=== PATIENT | male | born 1960 | race Caucasian/White ===

== ENCOUNTER 2017-02-04 08:07 | Inpatient (IN) | payer OTHER ==
[~2017-02-04] VITALS: Ht 167.6 cm; Wt 89.0 kg
[2017-02-04] MEDS ORDERED: PROT40TA PO (08:32)
[2017-02-04] MEDS ORDERED: ATOR1TAB18 PO (08:32)
[2017-02-04] MEDS ORDERED: ALPR0.5T3 PO (08:32)
[2017-02-04] MEDS ORDERED: AMLO2.5T PO (08:32)
[2017-02-04] MEDS ORDERED: ALLO100T PO (08:32)
[2017-02-04] MEDS ORDERED: LISI10TA3 PO (08:32)
[2017-02-11] VITALS (9 sets, daily range): BP systolic 118–154; BP diastolic 76–90; PULSE 87–116; RESP 18–20; TEMP 97.7–99.1; O2SAT 95–99
[2017-02-11] MEDS ORDERED: ePHEDrine/NS 25 MG/5 ML SYR IV ONE (11:04)
[2017-02-11] MEDS ORDERED: PHENYLEPH/NS 1000 MCG/10 ML SYR IV ONE (11:04)
[2017-02-11] MEDS ORDERED: PROPOFOL 200 MG/20 ML AMP IV ONE (11:04)
[2017-02-11] MEDS ORDERED: ONDANSETRON HCL 4 MG/2 ML VIAL IV PUSH ONE (11:05)
[2017-02-11] MEDS ORDERED: LACTATED RINGER'S 1000 ML INJ 3,000 ML IV ONE (11:05)
[2017-02-11] MEDS ORDERED: VECURONIUM BROMIDE 20 MG VIAL IV ONE (11:05)
[2017-02-11] MEDS ORDERED: POVIDONE IODINE 5% (ANTISEPSIS KIT) 4 APPLICATIONS EACH NARE PRN (13:00)
[2017-02-11] MEDS ORDERED: DEXTROSE 5% IN WATE 1000ML INJ 1,000 ML IV SCH (13:00)
[2017-02-11] MEDS ORDERED: CHLORHEXIDINE GLUCONATE 2 % 1 PACK (2 CLOTHS) TOPICAL PRN (13:00)
[2017-02-11] MEDS ORDERED: LACTATED RINGER'S 1000 ML IV PRN (13:00)
[2017-02-11] MEDS ORDERED: INSULIN HUMAN REGULAR 1,000 UNITS/10 ML VIAL SQ PRN (13:00)
[2017-02-11] MEDS ORDERED: SODIUM CHLORID 0.9% 500 ML IV PRN (13:00)
[2017-02-11] MEDS ORDERED: ALVIMOPAN 12 MG CAPSULE - On Call PO SCH (13:00)
[2017-02-11] MEDS ORDERED: METOPROLOL TARTRATE 25 MG TAB PO PRN (13:00)
[2017-02-11] MEDS ORDERED: LEVOFLOXACIN 500 MG PREMIX INJ 100 ML IV ONE ×2 (13:37→13:44)
[2017-02-11] MEDS ORDERED: METRONIDAZOLE 500 MG/100 ML ISONTONIC SOLN IV SCH (14:15)
[2017-02-11] MEDS ORDERED: LEVOFLOXACIN 500 MG PREMIX INJ 100 ML IV SCH (14:15)
[2017-02-11] MEDS ORDERED: FAMOTIDINE 20 MG/2 ML VIAL ONE (14:15)
[2017-02-11] MEDS ORDERED: ACETAMINOPHEN 1000 MG/100 ML VIAL IV ONE (14:15)
[2017-02-11] MEDS ORDERED: MIDAZOLAM HCL 2 MG/2 ML VIAL ONE (14:15)
[2017-02-11] MEDS ORDERED: fentaNYL CITRATE 250 MCG/5 ML AMP ONE ×2 (14:16→17:36)
[2017-02-11] MEDS ORDERED: DEXAMETHASONE SOD PHOS 4 MG/ML VIAL ONE (14:16)
--- NOTE | 2017-02-11 14:22 | PD.HP.UP ---
H&P Update Note The Pre-Admit History and Physical Examination regarding the above named patient was reviewed (including, but not limited to, vital signs, heart, lungs, co-morbid conditions), and upon re-examination it is noted that: the patient's condition has not significantly changed since the last examination. Hosea Hutton MD Feb 11, 2017 14:22
[2017-02-11] MEDS ORDERED: metroNIDAZOLE 500 MG INJ 100 ML IV ONE (14:39)
[2017-02-11] MEDS ORDERED: BUPIVACAINE HCL PF 0.5% 30 ML VIAL ONE (15:02)
[2017-02-11] MEDS ORDERED: SUGAMMADEX SODIUM 200 MG/2 ML VIAL IV PUSH ONE ×2 (16:50)
--- NOTE | 2017-02-11 17:22 | HHI.PR ---
Immediate Post Op Note Procedure Date: Feb 11, 2017 Pre Op Diagnosis: Diverticulitis Post Op Diagnosis: same Surgeon: Hosea Hutton Office Coordinator Receptionist(s): Adriana Procedure: Exploratory lap + Lar Findings: chronic diverticulitis rectosigmoid liver/GB normal pre-sacral vein bleeding Complications: pre-sacral vein bleeding Specimen(s) removed: rectosigmoid Estimated blood loss: 1500cc Anesthesia: General Drains: DANNY IVF Patient to: PACU Patient Condition: Good Hosea Hutton MD Feb 11, 2017 17:22
[2017-02-11] MEDS ORDERED: ENALAPRILAT 1.25 MG/ML VIAL IV PRN (17:30)
[2017-02-11] MEDS ORDERED: SODIUM CHLOR 0.9% 250 ML INJ 250 ML IV ONE (17:30)
[2017-02-11] MEDS ORDERED: POTASSIUM CHLOR 20 MEQ PREMIX 100 ML IV PRN (17:30)
[2017-02-11] MEDS ORDERED: ACETAMINOPHEN 325 MG TAB PO PRN (17:30)
[2017-02-11] MEDS ORDERED: BUPIVACAINE HCL PF 0.5% 30 ML VIAL NB SCH (17:30)
[2017-02-11] MEDS ORDERED: NALOXONE HCL 0.4 MG/ML AMP IV PRN (17:30)
[2017-02-11] MEDS ORDERED: ONDANSETRON HCL 4 MG/2 ML VIAL IV PRN (17:30)
[2017-02-11] MEDS ORDERED: Post-op Orders (for Pharmacy) MISC XX ONE (17:30)
[2017-02-11] MEDS ORDERED: ACETAMINOPHEN/HYDROcodone 325 MG/5 MG TAB PO PRN (17:30)
[2017-02-11] MEDS ORDERED: ENALAPRILAT 2.5 MG/2 ML VIAL IV PRN (17:30)
[2017-02-11] MEDS ORDERED: POTASSIUM CHLOR 40 MEQ PREMIX 100 ML IV PRN (17:30)
[2017-02-11] MEDS ORDERED: BENZOCAINE 6 MG/MENTHOL 10 MG LOZENGE BUCCAL PRN (17:30)
[2017-02-11] MEDS ORDERED: ALPRAZolam 0.5 MG TAB PO PRN (17:30)
[2017-02-11] MEDS ORDERED: SODIUM CHLORIDE 0.9% FLUSH 5 ML FLUSH IVF PRN (17:30)
[2017-02-11] MEDS ORDERED: DO NOT ADM ANY ANTICOAGULANT DRUGS PRN (17:31)
[2017-02-11] MEDS ORDERED: *MEPERIDINE 25 MG INJ VIAL PERIprocedural Use ONLY ONE (17:33)
[2017-02-11] MEDS: KETOROLAC TROMETHAMINE 30 MG/ML (IVP) VIAL IVP PRN ×2 (17:48→23:56)
[2017-02-11 17:53] LABS: AUTOMATED NEUTROPHIL # 18.3 TH/MM3 (1.8-7.7); BASOPHIL # 0.1 TH/MM3 (0-0.2); BASOPHIL % 0.4 % (0.0-2.0); EOSINOPHIL % 0.2 % (0.0-4.0); HEMATOCRIT 33.9 % (39.0-51.0); HEMO FLAGS DIFF FINAL; LYMPH % 8.7 % (9.0-44.0); LYMPHOCYTE # 1.8 TH/MM3 (1.0-4.8); MEAN CORPUSCULAR HEMOGLOBIN 31.3 PG (27.0-34.0); MEAN CORPUSCULAR HGB CONC 34.4 % (32.0-36.0); MONO % 3.4 % (0.0-8.0); NEUT % 87.3 % (16.0-70.0); PLATELET COUNT 183 TH/MM3 (150-450); RED BLOOD COUNT 3.73 MIL/MM3 (4.50-5.90); RED CELL DISTRIBUTION WIDTH 13.9 % (11.6-17.2)
[2017-02-11] MEDS: D5-NS + KCL 20 MEQ INJ 1,000 ML IV SCH ×2 (18:00→23:43)
[2017-02-11] MEDS ORDERED: *ONDANSETRON 4 MG VIAL PERIprocedural Use ONLY ONE (18:06)
[2017-02-11] MEDS ORDERED: *morphine SULFATE 8 MG/ML PERIprocedure ONLY ONE (18:07)
[2017-02-11] MEDS ORDERED: PILL SPLITTER OTHER PRN (18:45)
[2017-02-11] MEDS: MORPHINE SULFATE 30 MG/30 ML PCA IV SCH (18:50)
[2017-02-11] MEDS: METOCLOPRAMIDE HCL 10 MG/2 ML VIAL IVS SCH (19:58)
[2017-02-11] MEDS ORDERED: LORazepam 2 MG/ML VIAL IV ONE (20:00)
[2017-02-11] MEDS: SODIUM CHLORIDE 0.9% FLUSH 5 ML FLUSH IVF SCH (20:03)
[2017-02-11] MEDS ORDERED: metroNIDAZOLE 500 MG INJ 100 ML IV SCH (22:00)
[2017-02-11] MEDS: metroNIDAZOLE 500 MG INJ 100 ML IV SCH (22:00)
[2017-02-11] MEDS: PCA - TOTAL MG MORPHINE DELIVERED PER SHIFT SCH (22:00)
[2017-02-12] VITALS (16 sets, daily range): BP systolic 111–154; BP diastolic 81–96; PULSE 98–114; RESP 18; TEMP 97.6–99.6; O2SAT 96–99
[2017-02-12] MEDS: D5-NS + KCL 20 MEQ INJ 1,000 ML IV SCH ×3 (05:26→20:53)
[2017-02-12] MEDS: metroNIDAZOLE 500 MG INJ 100 ML IV SCH ×2 (06:00→13:22)
[2017-02-12] MEDS: PCA - TOTAL MG MORPHINE DELIVERED PER SHIFT SCH ×3 (06:00→20:53)
[2017-02-12 07:00] LABS: BASOPHIL % 0.1 % (0.0-2.0); HEMATOCRIT 35.9 % (39.0-51.0); HEMO FLAGS DIFF FINAL; LYMPH % 5.9 % (9.0-44.0); LYMPHOCYTE # 0.8 TH/MM3 (1.0-4.8); MEAN CORPUSCULAR HEMOGLOBIN 30.6 PG (27.0-34.0); MEAN CORPUSCULAR HGB CONC 33.7 % (32.0-36.0); MONO % 8.3 % (0.0-8.0); NEUT % 85.7 % (16.0-70.0); PLATELET COUNT 150 TH/MM3 (150-450); RED BLOOD COUNT 3.94 MIL/MM3 (4.50-5.90); RED CELL DISTRIBUTION WIDTH 13.7 % (11.6-17.2); WHITE BLOOD COUNT 12.8 TH/MM3 (4.0-11.0)
[2017-02-12 07:01] LABS: POTASSIUM 4.5 MEQ/L (3.5-5.1)
[2017-02-12] MEDS: MORPHINE SULFATE 30 MG/30 ML PCA IV SCH (07:42)
[2017-02-12] MEDS: PANTOPRAZOLE SODIUM 40 MG VIAL IVP SCH (08:38)
[2017-02-12] MEDS: amLODIPine BESYLATE 5 MG TAB PO SCH (08:38)
[2017-02-12] MEDS: LISINOPRIL 10 MG TAB PO SCH (08:38)
[2017-02-12] MEDS: PANTOPRAZOLE SOD 40 MG DELAYED RELEASE TAB PO SCH (08:38)
[2017-02-12] MEDS: ALLOPURINOL 100 MG TAB PO SCH (08:38)
[2017-02-12] MEDS: METOCLOPRAMIDE HCL 10 MG/2 ML VIAL IVS SCH ×2 (08:39→20:45)
[2017-02-12] MEDS: ALVIMOPAN 12 MG CAPSULE - Post-op dosing PO SCH ×2 (08:39→20:47)
[2017-02-12] MEDS: ATORVASTATIN 80 MG TAB PO SCH (08:39)
[2017-02-12] MEDS: SODIUM CHLORIDE 0.9% FLUSH 5 ML FLUSH IVF SCH ×2 (08:39→20:52)
[2017-02-12] MEDS: KETOROLAC TROMETHAMINE 30 MG/ML (IVP) VIAL IVP PRN ×2 (12:14→20:46)
[2017-02-12] MEDS: LEVOFLOXACIN 500 MG PREMIX INJ 100 ML IV SCH (13:21)
[2017-02-12] MEDS ORDERED: ALVIMOPAN 12 MG CAPSULE PO SCH (21:00)
[2017-02-13] VITALS (14 sets, daily range): BP systolic 105–140; BP diastolic 81–88; PULSE 91–114; RESP 16–20; TEMP 97.1–98.9; O2SAT 92–96
[2017-02-13] MEDS: KETOROLAC TROMETHAMINE 30 MG/ML (IVP) VIAL IVP PRN ×3 (02:34→22:40)
[2017-02-13] MEDS: MORPHINE SULFATE 30 MG/30 ML PCA IV SCH ×2 (03:41→22:59)
[2017-02-13] MEDS: PCA - TOTAL MG MORPHINE DELIVERED PER SHIFT SCH ×3 (06:00→22:00)
[2017-02-13] MEDS: D5-NS + KCL 20 MEQ INJ 1,000 ML IV SCH ×2 (06:25→14:56)
[2017-02-13 06:43] LABS: AUTOMATED NEUTROPHIL # 9.5 TH/MM3 (1.8-7.7); BASOPHIL % 0.4 % (0.0-2.0); EOSINOPHIL # 0.2 TH/MM3 (0-0.4); EOSINOPHIL % 1.2 % (0.0-4.0); HEMATOCRIT 31.7 % (39.0-51.0); HEMO FLAGS DIFF FINAL; LYMPH % 12.6 % (9.0-44.0); LYMPHOCYTE # 1.5 TH/MM3 (1.0-4.8); MEAN CELL VOLUME 90.7 FL (80.0-100.0); MEAN CORPUSCULAR HEMOGLOBIN 30.9 PG (27.0-34.0); MEAN CORPUSCULAR HGB CONC 34.1 % (32.0-36.0); MONO % 8.4 % (0.0-8.0); NEUT % 77.4 % (16.0-70.0); PLATELET COUNT 144 TH/MM3 (150-450); RED CELL DISTRIBUTION WIDTH 14.2 % (11.6-17.2); WHITE BLOOD COUNT 12.2 TH/MM3 (4.0-11.0)
[2017-02-13 07:11] LABS: BICARBONATE 28.9 MEQ/L (21.0-32.0); POTASSIUM 4.4 MEQ/L (3.5-5.1)
[2017-02-13] MEDS: SODIUM CHLORIDE 0.9% FLUSH 5 ML FLUSH IVF SCH ×2 (09:00→20:17)
--- NOTE | 2017-02-13 09:01 | HHI.PR ---
Subjective Remarks Some nausea resolved. No vomiting. No flatus or BMs Objective Vital Signs Date Time Temp Pulse Resp B/P Pulse Ox O2 Delivery O2 Flow Rate FiO2 02/13/17 06:00 96 02/13/17 06:00 16 02/13/17 05:00 98 02/13/17 04:00 97.1 91 16 119/82 96 02/13/17 04:00 98 02/13/17 03:41 16 02/13/17 03:00 96 02/13/17 02:00 92 02/13/17 01:00 92 02/13/17 00:00 97.8 94 18 105/81 96 02/13/17 00:00 95 02/12/17 23:00 98 02/12/17 22:00 100 02/12/17 21:04 96 Nasal Cannula 2.00 02/12/17 21:00 100 02/12/17 20:53 18 02/12/17 20:00 104 02/12/17 20:00 99.6 102 18 124/81 97 02/12/17 15:00 97.8 99 18 123/83 98 02/12/17 15:00 100 02/12/17 11:36 99 Nasal Cannula 2.00 02/12/17 11:12 97.6 101 18 111/85 97 I/O 02/12/17 02/12/17 02/12/17 02/13/17 02/13/17 02/13/17 06:59 14:59 22:59 06:59 14:59 22:59 Intake Total 2167 ml Output Total 1365 ml 875 ml 1550 ml Balance -1365 ml -875 ml 617 ml Intake Oral 480 ml IV Total 1687 ml Output Urine Total 1200 ml 750 ml 1350 ml Drainage Total 165 ml 125 ml 200 ml Result Diagram: 02/13/17 0535 02/13/17 0535 Objective Remarks VS-S Abd: soft,dressing removed,wound clean. ON-Q remains. Labs-OK U/O-OK Assessment and Plan Assessment and Plan Stable POD#2 Transfer to [facility] D/C sue May shower Full liquid diet Ambulate more. Jose Rafael Wright MD Feb 13, 2017 09:01
[2017-02-13] MEDS: ATORVASTATIN 80 MG TAB PO SCH (09:44)
[2017-02-13] MEDS: ALVIMOPAN 12 MG CAPSULE - Post-op dosing PO SCH ×2 (09:44→20:16)
[2017-02-13] MEDS: METOCLOPRAMIDE HCL 10 MG/2 ML VIAL IVS SCH ×2 (09:44→20:16)
[2017-02-13] MEDS: PANTOPRAZOLE SODIUM 40 MG VIAL IVP SCH (09:44)
[2017-02-13] MEDS: ALLOPURINOL 100 MG TAB PO SCH (09:46)
[2017-02-13] MEDS: LISINOPRIL 10 MG TAB PO SCH (09:46)
[2017-02-13] MEDS: amLODIPine BESYLATE 5 MG TAB PO SCH (09:46)
[2017-02-13] MEDS: PANTOPRAZOLE SOD 40 MG DELAYED RELEASE TAB PO SCH (09:46)
[2017-02-13] MEDS: LEVOFLOXACIN 500 MG PREMIX INJ 100 ML IV SCH (14:51)
[2017-02-14] VITALS (7 sets, daily range): BP systolic 119–134; BP diastolic 72–81; PULSE 90–112; RESP 17–20; TEMP 95.7–98.2; O2SAT 94–97
[2017-02-14] MEDS: D5-NS + KCL 20 MEQ INJ 1,000 ML IV SCH (03:56)
[2017-02-14] MEDS: PCA - TOTAL MG MORPHINE DELIVERED PER SHIFT SCH ×2 (04:05→14:00)
[2017-02-14] MEDS: SODIUM CHLORIDE 0.9% FLUSH 5 ML FLUSH IVF SCH ×2 (09:00→21:00)
[2017-02-14] MEDS: ALLOPURINOL 100 MG TAB PO SCH (10:23)
[2017-02-14] MEDS: PANTOPRAZOLE SODIUM 40 MG VIAL IVP SCH (10:24)
[2017-02-14] MEDS: METOCLOPRAMIDE HCL 10 MG/2 ML VIAL IVS SCH ×2 (10:25→20:59)
[2017-02-14] MEDS: PANTOPRAZOLE SOD 40 MG DELAYED RELEASE TAB PO SCH (10:26)
[2017-02-14] MEDS: ATORVASTATIN 80 MG TAB PO SCH (10:26)
[2017-02-14] MEDS: amLODIPine BESYLATE 5 MG TAB PO SCH (10:27)
[2017-02-14] MEDS: ALVIMOPAN 12 MG CAPSULE - Post-op dosing PO SCH ×2 (10:28→20:59)
[2017-02-14] MEDS: LISINOPRIL 10 MG TAB PO SCH (10:28)
[2017-02-14] MEDS: ACETAMINOPHEN/HYDROcodone 325 MG/5 MG TAB PO PRN ×3 (12:36→21:00)
[2017-02-14] MEDS: LEVOFLOXACIN 500 MG PREMIX INJ 100 ML IV SCH (14:43)
--- NOTE | 2017-02-14 17:47 | HHI.PR ---
Subjective Remarks Some nausea resolved. No vomiting. Flatus no BMs Objective Vital Signs Date Time Temp Pulse Resp B/P Pulse Ox O2 Delivery O2 Flow Rate FiO2 02/14/17 16:00 97.0 107 17 134/79 97 02/14/17 12:00 96.8 112 17 124/74 97 02/14/17 08:00 95.7 99 17 133/77 94 02/14/17 04:05 18 02/14/17 04:05 18 02/14/17 04:00 97.0 105 20 121/80 95 02/14/17 00:00 98.2 106 20 134/81 95 02/13/17 22:59 18 02/13/17 22:00 18 02/13/17 20:08 18 02/13/17 20:00 98.3 114 20 140/88 96 02/13/17 18:01 102 18 96 I/O 02/13/17 02/13/17 02/13/17 02/14/17 02/14/17 02/14/17 06:59 14:59 22:59 06:59 14:59 22:59 Intake Total 2167 ml 904 ml 593 ml 784 ml 240 ml Output Total 1550 ml 340 ml 365 ml 90 ml 1210 ml 620 ml Balance 617 ml 564 ml 228 ml 694 ml -970 ml -620 ml Intake Oral 480 ml 120 ml 240 ml IV Total 1687 ml 904 ml 473 ml 784 ml Output Urine Total 1350 ml 300 ml 325 ml 1100 ml 550 ml Drainage Total 200 ml 40 ml 40 ml 90 ml 110 ml 70 ml Result Diagram: 02/13/17 0535 02/13/17 0535 Objective Remarks VS-S Abd: wound clean. ON-Q remains. Labs-OK U/O-OK Assessment and Plan Assessment and Plan Stable POD#3 May shower Reg diet Jose Rafael Wright MD Feb 14, 2017 17:47
[2017-02-15] VITALS: BP 141/80; PULSE 102; RESP 20; TEMP 95.5; O2SAT 95
[2017-02-15] MEDS: D5-NS + KCL 20 MEQ INJ 1,000 ML IV SCH (02:05)
[2017-02-15] MEDS: ACETAMINOPHEN/HYDROcodone 325 MG/5 MG TAB PO PRN ×2 (02:06→06:56)
[2017-02-15 08:00] VITALS: BP 120/72; PULSE 107; RESP 16; TEMP 95.9; O2SAT 95
[2017-02-15] MEDS: PANTOPRAZOLE SODIUM 40 MG VIAL IVP SCH (09:00)
[2017-02-15] MEDS: SODIUM CHLORIDE 0.9% FLUSH 5 ML FLUSH IVF SCH (09:00)
[2017-02-15] MEDS: LISINOPRIL 10 MG TAB PO SCH (09:46)
[2017-02-15] MEDS: ALVIMOPAN 12 MG CAPSULE - Post-op dosing PO SCH (09:46)
[2017-02-15] MEDS: amLODIPine BESYLATE 5 MG TAB PO SCH (09:46)
[2017-02-15] MEDS: PANTOPRAZOLE SOD 40 MG DELAYED RELEASE TAB PO SCH (09:46)
[2017-02-15] MEDS: ALLOPURINOL 100 MG TAB PO SCH (09:46)
[2017-02-15] MEDS: METOCLOPRAMIDE HCL 10 MG/2 ML VIAL IVS SCH (09:46)
[2017-02-15] MEDS: ATORVASTATIN 80 MG TAB PO SCH (09:46)
[2017-02-15] MEDS ORDERED: HYDR-3516 PO (10:02)
--- NOTE | 2017-02-23 22:26 | MP ---
cc: YAZ WOO M.D. DATE OF SURGERY February 11, 2017 PREOPERATIVE DIAGNOSIS Recurrent chronic diverticulitis. PROCEDURE Exploratory laparotomy with proctosigmoidectomy and low pelvic anastomosis. POSTOPERATIVE DIAGNOSIS Recurrent chronic diverticulitis. SURGEON Dr. Woo SPECIAL EVENT ASSISTANT Dr. Tom Wright. PROCEDURE The patient was placed in the supine position. After adequate general anesthesia his legs were placed in [place] stirrups and supported appropriately. The abdomen and perineum were then prepped with Betadine solution and draped in usual sterile fashion. With Dr. Wright's assistance the abdomen was opened through an infraumbilical transverse incision dividing the rectus muscles with electrocautery. Exploration revealed chronic thickening and induration of the rectosigmoid consistent with diverticular disease. The proximal colon was palpated and felt to be pretty unremarkable. Small bowel was run from ligament of Treitz down to ileocecal valve and felt to be normal. Stomach, duodenum were normal. The liver and gallbladder were unremarkable. The great vessels were of normal caliber and fairly soft to palpation. First the sigmoid colon was mobilized medially by dividing along the white line of Toldt. The left ureter was identified and carefully preserved. Dissection then proceeded up the left gutter freeing the left colon off the retroperitoneum up to the area of the splenic flexure. The right retroperitoneal space was then opened and the bowel dissected off the presacral fascia down toward the pelvic floor. The pedicle for the superior hemorrhoidal vessels identified and divided between Shayy's obtaining hemostasis with Vicryl ties. Bowel was then dissected off the presacral fascia down to the pelvic floor encountering a perforating varicosity in the distal part of the presacral space requiring suture ligature and hemostatic tact placement. After full mobilization the distal resection margin was chosen in the proximal rectum at which point the mesorectum was divided between Shayy's obtaining hemostasis with Vicryl ties. The bowel was then divided between a pursestring suture device and a Lawson clamp. After full mobilization the bowel was sized to reach the rectal pouch without tension and with good blood supply preserving the left colic vessels. Marginal artery was taken at the appropriate point and the bowel divided between a pursestring suture device and a Lawson clamp. The end of the bowel was sized to accept an EEA stapling anvil and this was secured with a pursestring suture. Dr. Wright inserted the EEA stapling instrument transanally under direct vision was brought up to the end of the rectal pouch and the pursestring suture tied. The stapler was then reassembled. The bowel aligned properly, the staple closed and fired upon withdrawal two complete doughnuts of tissue were seen. Gentle insufflation confirmed an airtight anastomosis. The abdomen was then irrigated copiously with normal saline. Adequate hemostasis achieved at all sites. The transverse incision closed anatomically in two layers using #1 PDS sutures to reapproximate the respective fascial layers. ON-Q catheters were placed into the rectus sheaths on both sides and brought up through subcutaneous tunnels above the transverse incision. The subcu tissue was irrigated copiously and the skin closed with a running subcuticular Vicryl suture. Wound area washed with normal saline and dried, sterile dressing of Telfa and gauze applied. The patient tolerated the procedure quite well and was brought to recovery room in stable condition. Sponge and needle counts were correct at the end of procedure. MD BRENDA Dhaliwal/CHRISTOPHE /6:41 PM /10:10 PM
== END 2017-02-15 11:49 | disposition home or self-care (01) | DRG 331 ==
LOC: HSDI 02-11 12:08 → HCIS 02-11 18:32 → N07A 02-13 13:16
PROVIDERS: ADMIT Colon & Rectal Surgery; ATTEND Colon & Rectal Surgery
PROC: 0DBN0ZZ Excision of Sigmoid Colon, Open Approach (ICD-10-PCS; 2017-02-11)
PROC: 30233N1 Transfusion of Nonautologous Red Blood Cells into Peripheral Vein, Percutaneous Approach (ICD-10-PCS; 2017-02-11)
PROC: 0WJP0ZZ Inspection of Gastrointestinal Tract, Open Approach (ICD-10-PCS; 2017-02-11)
PROC: 0DBP0ZZ Excision of Rectum, Open Approach (ICD-10-PCS; principal; 2017-02-11 14:30)
DX: K57.32 Diverticulitis of large intestine without perforation or abscess without bleeding (principal); R11.0 Nausea
CPT/HCPCS: 36430; 80048; 85025; 86850; 86900; 86901; 86920; 88305; 88307; 94150; C9113; J0131; J1100; J1885; J1956; J2060; J2175; J2250; J2270; J2370; J2405; J2765; J3010; J3480; J7050; J7120; P9016

== ENCOUNTER → 2017-02-04 | Outpatient (CLI) | payer OTHER ==
[~2017-02-04] MED LIST: ALLO100T PO; ALPR-138 PO; ALPR0.5T3 PO; AMLO2.5T PO; ATOR1TAB18 PO; ATOR40TA PO; CIPR500T93 PO; DOXY100T PO; HYDR-3516 PO; HYDR-3580 PO; LISI-363 PO; LISI10TA3 PO; PROC1TAB3 PO; PROT40TA PO
[2017-02-04 08:57] LABS: AUTOMATED NEUTROPHIL # 4.5 TH/MM3 (1.8-7.7); BASOPHIL % 0.5 % (0.0-2.0); EOSINOPHIL # 0.2 TH/MM3 (0-0.4); EOSINOPHIL % 2.2 % (0.0-4.0); HEMATOCRIT 44.4 % (39.0-51.0); HEMO FLAGS DIFF FINAL; LYMPH % 29.5 % (9.0-44.0); LYMPHOCYTE # 2.2 TH/MM3 (1.0-4.8); MEAN CELL VOLUME 89.5 FL (80.0-100.0); MEAN CORPUSCULAR HEMOGLOBIN 30.4 PG (27.0-34.0); MONO % 9.2 % (0.0-8.0); NEUT % 58.6 % (16.0-70.0); PLATELET COUNT 181 TH/MM3 (150-450); RED BLOOD COUNT 4.96 MIL/MM3 (4.50-5.90); RED CELL DISTRIBUTION WIDTH 14.2 % (11.6-17.2); WHITE BLOOD COUNT 7.6 TH/MM3 (4.0-11.0)
[2017-02-04 09:06] LABS: APTT (PATIENT) 24.6 SEC (24.3-30.1); PROTHROMBIN TIME - PATIENT 10.5 SEC (9.8-11.6)
[2017-02-04 09:07] LABS: BACTERIA, URINE RARE /hpf; BLOOD, URINE NEG (NEG); COMMENT (UR) CULT NOT INDICATED; CULTURE IF INDICATED CULT NOT INDICATED; GLUCOSE,URINE NEG (NEG); KETONE, URINE NEG (NEG); NITRITE,URINE NEG (NEG); PH, URINE 5.5 (5.0-8.5); URINE COLOR LIGHT-YELLOW (YELLW/STRAW)
[2017-02-04 09:24] LABS: ANION GAP 8 MEQ/L (5-15); AST (GOT) 23 U/L (15-37); BICARBONATE 25.7 MEQ/L (21.0-32.0); BLOOD UREA NITROGEN 19 MG/DL (7-18); CHLORIDE 103 MEQ/L (98-107); GLOMERULAR FILTRATION RATE 62 ML/MIN (>89); GLUCOSE,FASTING 90 MG/DL (74-99); POTASSIUM 4.4 MEQ/L (3.5-5.1); SODIUM (NA) 137 MEQ/L (136-145)
[2017-02-04 09:25] LABS: ALT (GPT) 31 U/L (12-78)
[2017-02-04 09:27] LABS: ALKALINE PHOSPHATASE 49 U/L (45-117); TOTAL BILIRUBIN ADULT 0.9 MG/DL (0.2-1.0)
--- NOTE | 2017-02-04 09:35 | RADRPT ---
EXAM DATE/TIME: 02/04/2017 09:01 [facility] COMPARISON: No previous studies available for comparison. INDICATIONS : Evaluate for pneumonia, pneumothorax or communicable disease. Preop chest for exploratory laporotomy and possible colon resection on 02/11/17. No chest complaints at this time MEDICAL HISTORY : Diverticulitis. SURGICAL HISTORY : None. ENCOUNTER: Initial ACUITY: 1 day PAIN SCORE: 0/10 LOCATION: Bilateral chest FINDINGS: PA and lateral views of the chest demonstrate the lungs to be symmetrically aerated without evidence of mass, infiltrate or effusion. The cardiomediastinal contours are unremarkable. Osseous structure s are intact. CONCLUSION: 1. No acute cardiopulmonary disease. Donte Maria MD on February 04, 2017 at 9:33 Board Certified Radiologist. This report was verified electronically.
--- NOTE | 2017-02-04 18:57 | EKG ---
Date Performed: 02/04/2017 Time Performed: 08:24:05 PTAGE: 56 years EKG: Sinus rhythm Since previous tracing, no significant change noted NORMAL ECG PREVIOUS TRACING : 06/12/2015 05.39.24 DOCTOR: Baljit Palencia Interpretating Date/Time 02/04/2017 18:56:59
== END ==
LOC: CPRE 08:02
PROVIDERS: ATTEND Colon & Rectal Surgery
DX: Z01.812 Encounter for preprocedural laboratory examination (principal); Z01.811 Encounter for preprocedural respiratory examination; Z01.810 Encounter for preprocedural cardiovascular examination; K57.32 Diverticulitis of large intestine without perforation or abscess without bleeding
CPT/HCPCS: 36415; 71020; 80053; 81001; 85025; 85610; 85730; 93005

== ENCOUNTER 2017-02-17 14:12 | Inpatient (IN) | payer OTHER ==
[~2017-02-17 14:12] MED LIST changes: -ALPR-138 PO; -ATOR40TA PO; -CIPR500T93 PO; -DOXY100T PO; -HYDR-3516 PO; -HYDR-3580 PO; -LISI-363 PO; -PROC1TAB3 PO
[2017-02-17 17:10] VITALS: BP 138/92; PULSE 94; RESP 19; TEMP 97.9; O2SAT 97
[2017-02-17] MEDS ORDERED: DIATRIZOATE MEGLUM/DIATRIZOATE SOD 9 ML CUP PO ONE (17:30)
[2017-02-17] MEDS: SODIUM CHLOR 0.9% 1000 ML INJ 1,000 ML IV SCH (17:40)
[2017-02-17] MEDS ORDERED: ALPRAZolam 0.5 MG TAB PO PRN (18:00)
[2017-02-17 18:35] LABS: BLOOD, URINE NEG (NEG); COMMENT (UR) CULT NOT INDICATED; CULTURE IF INDICATED CULT NOT INDICATED; GLUCOSE,URINE NEG (NEG); KETONE, URINE 10 mg/dL (NEG); NITRITE,URINE NEG (NEG); URINE COLOR LIGHT-YELLOW (YELLW/STRAW)
[2017-02-17] MEDS ORDERED: PILL SPLITTER OTHER PRN (18:45)
[2017-02-17] MEDS ORDERED: IOHEXOL 350 MG/ML 10 ML VIAL (for RAD DIAG) IV ONE (19:57)
[2017-02-17 20:11] VITALS: BP 142/90; PULSE 101; RESP 18; TEMP 98.7; O2SAT 94
--- NOTE | 2017-02-17 20:15 | RADRPT ---
EXAM DATE/TIME: 02/17/2017 19:44 [facility] COMPARISON: CT ABDOMEN & PELVIS W CONTRAST, June 12, 2015, 5:56. INDICATIONS : Diffuse abdomen pain today. IV CONTRAST: 69 cc Omnipaque 350 (iohexol) IV ORAL CONTRAST: Prescribed oral contrast ingested. RADIATION DOSE: 11.14 CTDIvol (mGy) MEDICAL HISTORY : Gastroesophageal reflux disease. Diverticulosis. SURGICAL HISTORY : Colon resection. ENCOUNTER: Initial ACUITY: 1 day PAIN SCALE: 7/10 LOCATION: Bilateral abdomen TECHNIQUE: Volumetric scanning of the abdomen and pelvis was performed. Using automated exposure control and ad justment of the mA and/or kV according to patient size, radiation dose was kept as low as reasonably achievable to obtain optimal diagnostic quality images. DICOM format image data is available electro nically for review and comparison. FINDINGS: LOWER LUNGS: The visualized lower lungs are clear. LIVER: Homogeneous density without lesion. There is no dilation of the biliary tree. No calcified gallston es. SPLEEN: Normal size without lesion. PANCREAS: Within normal limits. KIDNEYS: Normal in size and shape. There is no mass, stone or hydronephrosis. ADRENAL GLANDS: Within normal limits. VASCULAR: There is no aortic aneurysm. BOWEL/MESENTERY: There is induration of the mesentery in the left upper abdomen and left lower quadrant. A few droplet s of air are seen in the left lower quadrant. There is also induration of the perirectal fat and a fe w drops of air are seen within the presacral space.. There is also air within the anterior abdominal wall bilaterally. Evidence of previous surgery in the rectosigmoid colon. There is minimal fluid in t he left paracolic gutter. ABDOMINAL WALL: Scattered air is seen within the abdominal wall bilaterally.. RETROPERITONEUM: There is no lymphadenopathy. BLADDER: No wall thickening or mass. REPRODUCTIVE: Within normal limits. INGUINAL: There is no lymphadenopathy or hernia. MUSCULOSKELETAL: Within normal limits for patient age. CONCLUSION: 1. There is scattered pneumoperitoneum/extraluminal air within the left lower quadrant mesentery, pre sacral space and along the anterior abdominal wall bilaterally including the intra-abdominal musculat ure. This is of uncertain etiology. 2. There is minimal induration of the mesentery of the left lower quadrant and perirectal fat. 3. Minimal fluid in the left paracolic gutter. 4. Scattered diverticulosis and evidence of previous anastomosis in the rectosigmoid colon. Bassam Medina MD on February 17, 2017 at 20:09 Board Certified Radiologist. This report was verified electronically.
[2017-02-17] MEDS: ALVIMOPAN 12 MG CAPSULE PO SCH (20:38)
[2017-02-17] MEDS: PANTOPRAZOLE SODIUM 40 MG VIAL IV PUSH SCH (20:39)
[2017-02-17 22:08] LABS: AUTOMATED NEUTROPHIL # 7.6 TH/MM3 (1.8-7.7); BASOPHIL # 0.1 TH/MM3 (0-0.2); BASOPHIL % 0.6 % (0.0-2.0); EOSINOPHIL # 0.2 TH/MM3 (0-0.4); EOSINOPHIL % 1.7 % (0.0-4.0); HEMO FLAGS DIFF FINAL; LYMPHOCYTE # 1.7 TH/MM3 (1.0-4.8); MEAN CELL VOLUME 88.1 FL (80.0-100.0); MEAN CORPUSCULAR HEMOGLOBIN 31.4 PG (27.0-34.0); MEAN CORPUSCULAR HGB CONC 35.6 % (32.0-36.0); MONO % 8.4 % (0.0-8.0); NEUT % 73.3 % (16.0-70.0); PLATELET COUNT 257 TH/MM3 (150-450); RED BLOOD COUNT 3.41 MIL/MM3 (4.50-5.90); RED CELL DISTRIBUTION WIDTH 13.6 % (11.6-17.2); WHITE BLOOD COUNT 10.4 TH/MM3 (4.0-11.0)
[2017-02-17 22:22] LABS: ANION GAP 7 MEQ/L (5-15); AST (GOT) 58 U/L (15-37); BICARBONATE 28.5 MEQ/L (21.0-32.0); BLOOD UREA NITROGEN 11 MG/DL (7-18); CHLORIDE 100 MEQ/L (98-107); GLOMERULAR FILTRATION RATE 83 ML/MIN (>89); SODIUM (NA) 135 MEQ/L (136-145)
[2017-02-17 22:23] LABS: ALT (GPT) 49 U/L (12-78)
[2017-02-17 22:25] LABS: ALKALINE PHOSPHATASE 71 U/L (45-117); TOTAL BILIRUBIN ADULT 0.7 MG/DL (0.2-1.0)
[2017-02-17] MEDS: LEVOFLOXACIN 500 MG PREMIX INJ 100 ML IV SCH (23:11)
[2017-02-17] MEDS: ACETAMINOPHEN 325 MG TAB PO PRN (23:12)
[2017-02-17 23:45] VITALS: BP 133/82; PULSE 67; RESP 18; TEMP 98.8; O2SAT 97
[2017-02-18 02:51] VITALS: BP 132/81; PULSE 93; RESP 18; O2SAT 96
[2017-02-18] MEDS: SODIUM CHLOR 0.9% 1000 ML INJ 1,000 ML IV SCH ×4 (02:52→23:38)
[2017-02-18] MEDS: MORPHINE SULFATE 4 MG/ML INJ IV PUSH PRN ×3 (02:53→11:02)
[2017-02-18 06:04] VITALS: BP 135/80; O2SAT 98
[2017-02-18 07:42] VITALS: BP 158/84; PULSE 96; RESP 20; TEMP 98.2; O2SAT 97
--- NOTE | 2017-02-18 07:57 | MH ---
cc: YAZ WOO M.D. DATE OF ADMISSION: 02/17/2017 ADMITTING DIAGNOSIS Abdominal pain. Recent diverticular resection. HISTORY OF PRESENT ILLNESS Mr. Palmer is a 57-year-old male in relatively good health having had significant attacks of diverticulitis. Last week he underwent an exploratory laparotomy and proctosigmoidectomy with low pelvic anastomosis. He did have significant diverticular inflammation. He tolerated the surgery well. Postop course was relatively smooth with GI tract functioning and his diet, advancing slowly. He was able to ambulate with minimal difficulty and was considered ready for discharge home on postop day #4. The patient complains of increasing cramps with abdominal pain over the last day or so. He has had very little appetite, though he has had no nausea or vomiting. Denies any stools but has been passing flatus. No rectal bleeding. Denies any drainage from the incision; however, it has turned color on the left side of the incision. He has been having difficulty ambulating, but no difficulty with urination. Please see the previous admission for past medical and surgical history. PERTINENT PHYSICAL GENERAL: A very pleasant male in no acute distress. HEENT: Remarkable for somewhat pale, dry membranes, nonicteric sclerae. NECK: Supple without gross adenopathy. CHEST: Relatively clear, diminished in the bases. HEART: Regular rhythm. ABDOMEN: Soft and rounded, not really distended. Incision was ecchymotic on the left side but no cellulitis. Slight tympany throughout the abdomen. No rebound or guarding or any masses noted. No drainage from the incision. EXTREMITIES: No cyanosis or clubbing and minimal pedal edema. IMPRESSION Abdominal pain after diverticular resection. Does have a significant amount of abdominal tenderness. He is taking very little oral intake, although mostly liquids, urinating well. RECOMMENDATIONS 1. Suggested we readmit him for IV fluids, rechecking his blood tests, getting a CT scan. We will check his abdomen and pelvis and area of anastomosis. 2. Empirically start some broad-spectrum antibiotics in the possibility he does have either some postop inflammation or cellulitis. MD BRENDA Dhaliwal/KEYA /9:48 PM /7:52 AM
[2017-02-18] MEDS: ALVIMOPAN 12 MG CAPSULE PO SCH ×2 (09:07→20:31)
[2017-02-18] MEDS: ALLOPURINOL 100 MG TAB PO SCH (09:07)
[2017-02-18] MEDS: LISINOPRIL 10 MG TAB PO SCH (09:07)
[2017-02-18] MEDS: amLODIPine BESYLATE 5 MG TAB PO SCH (09:09)
[2017-02-18 11:15] VITALS: BP 137/80; PULSE 97; RESP 19; TEMP 97.9; O2SAT 96
[2017-02-18] MEDS: ACETAMINOPHEN 325 MG TAB PO PRN (14:17)
[2017-02-18 15:38] VITALS: BP 132/87; PULSE 90; RESP 18; TEMP 98.3; O2SAT 97
--- NOTE | 2017-02-18 19:11 | HHI.PR ---
Subjective Remarks C/R Surg afebrile, VSS UO good nicolas PO +flatus Objective - Vital Signs Date Time Temp Pulse Resp B/P Pulse Ox O2 Delivery O2 Flow Rate FiO2 02/18/17 15:38 98.3 90 18 132/87 97 Result Diagram: 02/17/17215002/17/172150 Objective Remarks PE alert Abd - softer, less tympany, wound dry A/P Assessment and Plan Imp: CT normal post-op, lots of stool OOB adv diet ileus decr IVF Hosea Hutton MD Feb 18, 2017 19:11
[2017-02-18 20:00] VITALS: BP 121/68; PULSE 74; RESP 18; TEMP 98.8; O2SAT 97
[2017-02-18] MEDS: BISACODYL 10 MG SUPP RECTAL SCH (20:31)
[2017-02-18] MEDS: PANTOPRAZOLE SODIUM 40 MG VIAL IV PUSH SCH (20:31)
[2017-02-18] MEDS: LEVOFLOXACIN 500 MG PREMIX INJ 100 ML IV SCH (22:05)
[2017-02-19 00:08] VITALS: BP 140/90; PULSE 98; RESP 18; O2SAT 96
[2017-02-19] MEDS: MORPHINE SULFATE 4 MG/ML INJ IV PUSH PRN (00:10)
[2017-02-19 04:55] VITALS: BP 129/88; PULSE 92; RESP 18; TEMP 98.5; O2SAT 96
[2017-02-19] MEDS: ACETAMINOPHEN 325 MG TAB PO PRN ×3 (05:34→14:51)
[2017-02-19 08:01] VITALS: BP 138/86; PULSE 90; RESP 18; TEMP 98; O2SAT 97
--- NOTE | 2017-02-19 08:15 | HHI.PR ---
Subjective Remarks C/R Surg afebrile, VSS UO good nicolas PO +flatus/BM Objective - Vital Signs Date Time Temp Pulse Resp B/P Pulse Ox O2 Delivery O2 Flow Rate FiO2 02/19/17 08:01 98.0 90 18 138/86 97 Result Diagram: 02/17/17215002/17/172150 Objective Remarks PE alert Abd - softer, less tympany, wound dry - burning A/P Assessment and Plan Imp: OOB adv diet ileus better decr IVF dc plans Hosea Hutton MD Feb 19, 2017 08:15
[2017-02-19] MEDS: ALLOPURINOL 100 MG TAB PO SCH (09:48)
[2017-02-19] MEDS: amLODIPine BESYLATE 5 MG TAB PO SCH (09:48)
[2017-02-19] MEDS: ALVIMOPAN 12 MG CAPSULE PO SCH (09:49)
[2017-02-19] MEDS: LISINOPRIL 10 MG TAB PO SCH (09:49)
[2017-02-19] MEDS: BISACODYL 10 MG SUPP RECTAL SCH (09:50)
[2017-02-19 11:43] VITALS: BP 133/87; PULSE 90; RESP 18; TEMP 98.1; O2SAT 97
[2017-02-19 15:52] VITALS: BP 121/82; PULSE 89; RESP 18; TEMP 98; O2SAT 96
[2017-02-19] MEDS: SODIUM CHLOR 0.9% 1000 ML INJ 1,000 ML IV SCH (16:44)
[2017-02-19] MEDS ORDERED: POLYETHYLENE GLYCOL 17 GM PKG PO ONE (16:45)
== END 2017-02-19 18:30 | disposition home or self-care (01) | DRG 390 ==
LOC: NEDA 15:50 → NEPHCDU 16:39
PROVIDERS: ADMIT Colon & Rectal Surgery; ATTEND Colon & Rectal Surgery
DX: K56.7 Ileus, unspecified (principal); Z98.890 Other specified postprocedural states
CPT/HCPCS: 74177; 80053; 81001; 85025; C9113; J1956; J2270; J7030; Q9963; Q9967